=== PATIENT | female | born 1945 | race Caucasian/White ===

== ENCOUNTER 2019-06-01 14:31 | Emergency (ER) | payer MEDICARE, BC ==
[~2019-06-01] VITALS: Ht 154.9 cm; Wt 56.0 kg
[~2019-06-01 14:31] MED LIST: ASPI-1265 PO; CHOL10002 PO; COU5T PO; ESCI20TA29 PO; MULT1TAB74 PO; MV,I66.7 PO; QUET-1 PO; RAMI5CAP65 PO
[2019-06-01 14:37] VITALS: BP 123/50
[2019-06-01] MEDS ORDERED: TRIA15CR61 TOP (14:41)
== END 2019-06-01 14:47 | disposition home or self-care (01) ==
LOC: ER 14:31
DX: I77.6 Arteritis, unspecified (principal); I10 Essential (primary) hypertension; E11.9 Type 2 diabetes mellitus without complications; Z90.710 Acquired absence of both cervix and uterus; Z88.1 Allergy status to other antibiotic agents; Z88.5 Allergy status to narcotic agent; Z88.8 Allergy status to other drugs, medicaments and biological substances
CPT/HCPCS: 99283

== ENCOUNTER 2019-06-12 02:18 | Emergency (ER) | payer MEDICARE, BC ==
[~2019-06-12] VITALS: Ht 152.4 cm; Wt 68.0 kg
[~2019-06-12 02:18] MED LIST changes: +TRIA15CR61 TOP
[2019-06-12 04:34] VITALS: BP 116/72
[2019-06-12] MEDS ORDERED: ondansetron 4mg rapidly disintigrating tab PO ONE (04:50)
[2019-06-12] MEDS ORDERED: HYDROcodone/acetaminophen 5mg/325mg tablet PO ONE (04:50)
[2019-06-12] MEDS ORDERED: HYDR-3965 PO (04:59)
[2019-06-12] MEDS ORDERED: ONDA4TAB6 PO (04:59)
== END 2019-06-12 05:20 | disposition home or self-care (01) ==
LOC: ER 02:18
DX: G89.29 Other chronic pain (principal); M25.562 Pain in left knee; I10 Essential (primary) hypertension; E11.9 Type 2 diabetes mellitus without complications; Z96.652 Presence of left artificial knee joint; Z90.710 Acquired absence of both cervix and uterus; Z98.890 Other specified postprocedural states; Z88.0 Allergy status to penicillin; Z88.5 Allergy status to narcotic agent; Z88.8 Allergy status to other drugs, medicaments and biological substances; Z79.82 Long term (current) use of aspirin; Z79.01 Long term (current) use of anticoagulants; Z79.899 Other long term (current) drug therapy
CPT/HCPCS: 29505; 73564; 99283